=== PATIENT | female | born 1990 | race Caucasian/White ===

== ENCOUNTER 2017-08-17 12:19 | Emergency (ER) | payer OTHER ==
[2017-08-17 13:01] VITALS: BP 119/77
--- NOTE | 2017-08-17 13:05 | CPEKG ---
Heart Rate: 65 RR Interval: 923 P-R Interval: 132 QRSD Interval: 86 QT Interval: 420 QTC Interval: 437 P Alcova: 4 QRS Alcova: 45 T Wave Alcova: 7 EKG Severity - NORMAL ECG - EKG Impression: SINUS RHYTHM Electronically Signed By: Perico Masterson 17-Aug-2017 13:14:34
--- NOTE | 2017-08-17 13:11 | EDPHY ---
H & P Smoking Status: Never smoked Time Seen by Provider: 08/17/17 12:47 HPI/ROS: CHIEF COMPLAINT: Syncope HISTORY OF PRESENT ILLNESS: 27-year-old female presents to the emergency department after having a syncopal episode at home. The patient states that she was at home and drink some carbonated water and immediately felt pain in the epigastric area of her stomach. She states that she was feeling lightheaded and dizzy and then had a syncopal episode. She states that she woke up and she remembers feeling confused. She denies a headache. She states her abdominal pain has completely resolved. Denies chest pain or difficulty breathing. Denies injury to upper or lower extremities. She states that she is feeling back to normal bowl wanted to be checked out. Denies substance abuse. REVIEW OF SYSTEMS: Constitutional: No fever, no chills. Eyes: No double or blurry vision. ENT: No sore throat. Respiratory: No cough, no shortness of breath. Cardiac: No chest pain. Gastrointestinal: No abdominal pain, vomiting or diarrhea. Genitourinary: No dysuria. Musculoskeletal: No neck or back pain. Skin: No rashes. Neurological: No headache. (Ara Vazquez) Past Medical/Surgical History: Negative (Ara Vazquez) Social History: (Ara Vazquez) Physical Exam: General Appearance: Alert, no distress. Vital signs are stable. Mentating normally and answering questions appropriately. Eyes: Pupils equal and round. Extraocular motions are all intact. ENT: Mouth: Mucous membranes moist. Respiratory: No wheezing, rhonchi, or rales, lungs are clear to auscultation. Cardiovascular: Regular rate and rhythm. Gastrointestinal: Abdomen is soft and nontender, no masses, no rebound or guarding, bowel sounds normal. Neurological: Alert and oriented x 3, cranial nerves II through XII grossly intact Skin: Warm and dry, no rashes. Musculoskeletal: Nontender to palpate along the cervical, thoracic or lumbar spine. Neck is supple. Extremities: Full range of motion and no peripheral edema. Psychiatric: Patient is oriented X 3, there is no agitation. (Ara Vazquez M) Constitutional: Initial Vital Signs Temperature (C) 36.6 C 08/17/17 12:40 Heart Rate 64 06/28/18 12:40 Respiratory Rate 16 08/17/17 12:40 Blood Pressure 115/70 08/17/17 12:40 O2 Sat (%) 96 08/17/17 12:40 O2 Delivery Mode Room Air Allergies/Adverse Reactions: No Known Allergies Allergy (Unverified 08/17/17 12:40) Home Medications: Medication Instructions Recorded NK [No Known Home Meds] 08/17/17 Medical Decision Making - Diagnostics EKG Interpretation: 12-lead EKG interpreted by me; official reading is in trace master. My interpretation is sinus rhythm rate 65 normal intervals (Perico Masterson) ED Course/Re-evaluation: 27-year-old female presents to the emergency department after she had a syncopal episode. Laboratory studies reveal normal and CBC, normal chemistries. HCG was negative. EKG reveals normal sinus rhythm. The case was discussed with Dr. Perico Masterson, secondary supervising physician, who did not directly evaluate the patient but agrees with treatment and plan. The patient was monitored for over 2 hr in the emergency department and she had no recurring syncopal episodes. She was feeling much better. She is comfortable being discharged home. Her will come pick her up. (Ara Vazquez) Differential Diagnosis: Syncope including but not limited to vasovagal syncope, arrhythmia, dehydration , and blood loss. (Ara Vazquez) - Data Points Laboratory Results: Laboratory Results 08/17/17 13:30 08/17/17 13:30 08/17/17 08/17/17 08/17/17 13:30 13:30 13:30 WBC 7.47 10^3/uL 10^3/uL (3.80-9.50) RBC 4.66 10^6/uL 10^6/uL (4.18-5.33) Hgb 13.6 g/dL g/dL (12.6-16.3) Hct 39.9 % % (38.0-47.0) MCV 85.6 fL fL (81.5-99.8) MCH 29.2 pg pg (27.9-34.1) MCHC 34.1 g/dL g/dL (32.4-36.7) RDW 13.2 % % (11.5-15.2) Plt Count 262 10^3/uL 10^3/uL (150-400) MPV 10.2 fL fL (8.7-11.7) Neut % (Auto) 72.4 % % (39.3-74.2) Lymph % (Auto) 22.5 % % (15.0-45.0) [place] % (Auto) 4.0 % L % (4.5-13.0) Eos % (Auto) 0.4 % L % (0.6-7.6) Baso % (Auto) 0.4 % % (0.3-1.7) Nucleat RBC Rel Count 0.0 % % (0.0-0.2) Absolute Neuts (auto) 5.41 10^3/uL 10^3/uL (1.70-6.50) Absolute Lymphs (auto) 1.68 10^3/uL 10^3/uL (1.00-3.00) Absolute Monos (auto) 0.30 10^3/uL 10^3/uL (0.30-0.80) Absolute Eos (auto) 0.03 10^3/uL 10^3/uL (0.03-0.40) Absolute Basos (auto) 0.03 10^3/uL 10^3/uL (0.02-0.10) Absolute Nucleated RBC 0.00 10^3/uL 10^3/uL (0-0.01) Immature Gran % 0.3 % % (0.0-1.1) Immature Gran # 0.02 10^3/uL 10^3/uL (0.00-0.10) Sodium 139 mEq/L mEq/L (135-145) Potassium 4.2 mEq/L mEq/L (3.3-5.0) Chloride 107 mEq/L mEq/L (97-110) Carbon Dioxide 21 mEq/l L mEq/l (22-31) Anion Gap 11 mEq/L mEq/L (8-16) BUN 12 mg/dL mg/dL (7-23) Creatinine 0.9 mg/dL mg/dL (0.6-1.0) Estimated GFR > 60 Glucose 84 mg/dL mg/dL (70-100) Calcium 9.2 mg/dL mg/dL (8.5-10.4) Beta HCG, Qual NEGATIVE Departure - Departure Disposition: Home, Routine, Self-Care Clinical Impression: Syncope Qualifiers: Syncope type: unspecified Qualified Code(s): R55 - Syncope and collapse Condition: Good Instructions: Syncope (ED) Additional Instructions: Diet and activity as tolerated. Return to the emergency department if you developed pain in her chest, difficulty breathing, headache, or if you feel worse in any way. Referrals: Sharon Tomlin, [Doctor of Osteopathy] - As per Instructions (Primary care provider orthopedic surgeon)
[2017-08-17 13:42] LABS: PLATELET COUNT 262 10^3/uL (150-400)
== END 2017-08-17 14:41 | disposition home or self-care (01) ==
LOC: EEVIPCON 12:19
DX: R55 Syncope and collapse (principal)